=== PATIENT | male | born 1995 | race Two or more races ===

== ENCOUNTER → 2016-12-19 | Outpatient (REF) | payer OTHER | LOC: M LAB REF 09:47 | PROVIDERS: ATTEND Physician Assistant | DX: J02.9 Acute pharyngitis, unspecified (principal) ==

== ENCOUNTER → 2016-12-22 | Day surgery (SDC) | payer OTHER ==
[~2016-12-22] VITALS: Ht 167.6 cm; Wt 79.4 kg
[~2016-12-22] MED LIST: LR 1,000 ML IV SCH
== END | disposition home or self-care (01) ==
LOC: M SDC 07:37
PROVIDERS: ATTEND Dentist Oral and Maxillofacial Surgery
DX: K02.9 Dental caries, unspecified (principal); Z53.09 Procedure and treatment not carried out because of other contraindication; J02.0 Streptococcal pharyngitis